=== PATIENT | female | born 1960 | race Two or more races ===

== ENCOUNTER 2019-09-26 05:08 | Day surgery (SDC) | payer OTHER ==
[2019-09-26] VITALS (13 sets, daily range): BP systolic 141–166; BP diastolic 68–88
[~2019-09-26] VITALS: Ht 154.9 cm; Wt 100.2 kg
[2019-09-26] MEDS ORDERED: PRILOSEC OTC20 MG ORAL (05:50)
[2019-09-26] MEDS ORDERED: ASPIRIN81 MG ORAL (05:50)
[2019-09-26] MEDS ORDERED: BENAZEPRIL-HCT1 EACH ORAL (05:50)
[2019-09-26] MEDS ORDERED: PROAIR HFA8.5 GM INH (05:50)
[2019-09-26] MEDS ORDERED: celeBREX 200mg Cap **SURGERY PATIENTS ONLY ORAL ONE (06:00)
[2019-09-26] MEDS ORDERED: oxyCONTIN 20mg tab ORAL ONE (06:00)
[2019-09-26] MEDS ORDERED: ceFAZolin 1gm IVPB IVPB ONE ×2 (06:00)
[2019-09-26] MEDS ORDERED: Ketorolac 30mg Inj ONE (07:01)
[2019-09-26] MEDS ORDERED: Kenalog-40 1ml Vial ONE (07:02)
[2019-09-26] MEDS ORDERED: Duramorph PF 5mg/10ml amp ONE (07:02)
[2019-09-26] MEDS ORDERED: Lidocaine 1% 10mg/ml/Epi 0.005mg/ml 30ml vial INJ ONE (07:02)
[2019-09-26] MEDS ORDERED: Bupivacaine 0.25% Inj 30ml INJ ONE (07:02)
--- NOTE | 2019-09-26 07:09 | Pre-Procedure Note/Attestation ---
Pre-Procedure Note/Attestation Complete Prior to Procedure Planned Procedure: left Procedure Narrative: knee arthroscopic acl reconstruction, possible menisectomy Indications for Procedure Pre-Operative Diagnosis: left knee acl tear and meniscus tear Attestation I attest that I discussed the nature of the procedure; its benefits; risks and complications; and alternatives (and the risks and benefits of such alternatives ), prior to the procedure, with the patient (or the patient's legal termite control service representative). I attest that, if there was a reasonable possibility of needing a blood transfusion, the patient (or the patient's legal termite control service representative) was given the [facility] standardized written summary, pursuant to the Jer Mike Blood Safety Act ([place] Health and Safety Code # 1645, as amended). I attest that I re-evaluated the patient just prior to the surgery and that there has been no change in the patient's H&P, except as documented below: Gian Prescott MD Sep 26, 2019 07:09
--- NOTE | 2019-09-26 07:09 | Operative Note - PDOC ---
Operative Note Operative Note Pre-op Diagnosis: left knee acl tear and meniscus tear Procedure: see op report Post-op Diagnosis: same as pre-op plus Operative Findings: consistent w/pre-op dx studies Anesthesia: MAC Specimen: none Complications: none Condition: stable Estimated Blood Loss: none Implant(s) used?: Yes Gian Prescott MD Sep 26, 2019 07:09
[2019-09-26] MEDS ORDERED: NS Irrig 4000ml IRRIG ONE ×6 (07:14→10:23)
[2019-09-26] MEDS ORDERED: HYDROcodone/Acetamin 5/325 tab ORAL PRN ×2 (07:15)
[2019-09-26] MEDS ORDERED: D5 1/2NS 1,000 ML IV SCH ×2 (07:15)
[2019-09-26] MEDS ORDERED: Tylenol #3 tab (300mg/30mg) ORAL PRN ×2 (07:15)
[2019-09-26] MEDS ORDERED: HYDROmorphone 1mg/ml Carpuject SUBQ PRN ×2 (07:15)
[2019-09-26] MEDS ORDERED: Duramorph PF 5mg/10ml amp IT ONE (07:16)
[2019-09-26] MEDS ORDERED: Ropivacaine 5mg/ml Vial 30ml INJ ONE (07:21)
[2019-09-26] MEDS ORDERED: Lidocaine 1% MPF 10mg/ml 5ml ONE (07:21)
[2019-09-26] MEDS ORDERED: Propofol 200mg/20ml IV ONE (07:21)
[2019-09-26] MEDS ORDERED: fentaNYL 100 mcg/2 mL IV ONE (07:31)
[2019-09-26] MEDS ORDERED: Midazolam 2mg/2ml Inj ONE (07:31)
[2019-09-26] MEDS ORDERED: LR 1000ml 1,000 ML IVLG SCH (08:21)
--- NOTE | 2019-09-26 08:21 | Anethesia Preoperative Eval ---
Anesthesia Pre-op PMH/ROS General Date of Evaluation: Sep 26, 2019 Time of Evaluation: 08:16 Anesthesiologist: Iram ASA Score: ASA 3 Mallampati Score Class I : Soft palate, uvula, fauces, pillars visible Class II: Soft palate, uvula, fauces visible Class III: Soft palate, base of uvula visible Class IV: Only hard plate visible Mallampati Classification: Class II Surgeon: Kenyon Diagnosis: L knee pain torn ACL Surgical Procedure: L knee arthroscopy ACL repair Anesthesia History: none Social History: current smoker Family History: no anesthesia problems Allergies: Coded Allergies: No Known Allergies (Unverified , 09/25/19) Medications: see eMAR Patient NPO?: Yes Past Medical History Cardiovascular: Reports: HTN - stable on pills; Denies: CAD, MS, valve dz, arrhythmia, other Pulmonary: Denies: asthma, COPD, LAITH, other Gastrointestinal/Genitourinary: Reports: GERD; Denies: CRI, ESRD, other Neurologic/Psychiatric: Reports: depression/anxiety Endocrine: Denies: DM, hypothyroidism, steroids, other HEENT: Denies: cataract (L), cataract (R), glaucoma, [place] (L), [place] (R), other Hematology/Immune: Denies: anemia, DVT, bleeding disorder, other Musculoskeletal/Integumentary: Reports: OA; Denies: RA, DJD, DDD, edema, other Other: obesity PMH Narrative: As above PSxH Narrative: LINDY, R ankle ORIF Anesthesia Pre-op Phys. Exam Physician Exam Last Vital Signs Date Time Temp Pulse Resp B/P (MAP) Pulse Ox O2 Delivery O2 Flow Rate FiO2 09/26/19 05:43 Room Air 09/26/19 05:41 97.0 98 18 150/76 98 Constitutional: NAD Neurologic: CN 2-12 intact Cardiovascular: RRR, no M/R/G Respiratory: CTA Gastrointestinal: other - obesity Airway Exam Mallampati Score: Class II MO: full Neck: short ROM: limited Teeth: missing Dentures: upper, lower Anesthesia Pre-op A/P Labs see chart Studies Pre-op Studies: EKG - NSR Risk Assessment & Plan Assessment: ASA 3 Plan: GA with LMA, R femoral block for postoperative pain control Status Change Before Surgery: No Pre-Antibiotics Drug: Ancef 2gr. Given Within 1 Hr of Incision: Yes Time Given: 09:10 Danial Walden MD Sep 26, 2019 08:21
[2019-09-26] MEDS ORDERED: Hydromorphone 0.5mg/0.5ml inj IVP PRN (08:30)
[2019-09-26] MEDS ORDERED: Ketorolac 30mg Inj IV PRN (08:30)
[2019-09-26] MEDS ORDERED: DiphenhydrAMINE 50mg/ml Inj IVP PRN (08:30)
[2019-09-26] MEDS ORDERED: Sterile Water Irrig 1000ml IRRIG ONE (09:00)
[2019-09-26] MEDS ORDERED: NS Irrig 1000ml ONE (09:00)
[2019-09-26] MEDS ORDERED: LR 1000ml ONE (09:00)
--- NOTE | 2019-09-26 10:47 | Immediate Post-Op Evaluation ---
Immediate Post-Op Evalulation Immediate Post-Op Evalulation Procedure: R knee artjroscopiuc ACL repair Date of Evaluation: Sep 26, 2019 Time of Evaluation: 10:46 IV Fluids: 800 Blood Products: none Estimated Blood Loss: min Urinary Output: none Blood Pressure Systolic: 142 Blood Pressure Diastolic: 76 Pulse Rate: 74 Respiratory Rate: 20 O2 Sat by Pulse Oximetry: 99 Temperature (Fahrenheit): 97.6 Pain Score (1-10): 2 Nausea: No Vomiting: No Complications none Patient Status: awake, patent, none Hydration Status: adequate Danial Walden MD Sep 26, 2019 10:47
--- NOTE | 2019-09-26 12:00 | NUR ---
Left knee immobilizer in place. Dr. Prescott here to speak with the patient. Good motion and capillary filling to all left toes.
--- NOTE | 2019-09-26 16:57 | 48 Hour Post Anesthesia Eval ---
Post Anesthesia Evaluation Procedure: R knee artjroscopiuc ACL repair Date of Evaluation: Sep 26, 2019 Time of Evaluation: 13:40 Blood Pressure Systolic: 148 0: 72 Pulse Rate: 72 Respiratory Rate: 20 Temperature (Fahrenheit): 97.5 O2 Sat by Pulse Oximetry: 98 Airway: patent Nausea: No Vomiting: No Pain Intensity: 3 Hydration Status: adequate Cardiopulmonary Status: stable Mental Status/LOC: patient returned to baseline Follow-up Care/Observations: n/a Post-Anesthesia Complications: none Follow-up care needed: ready to discharge Danial Walden MD Sep 26, 2019 16:57
--- NOTE | 2019-09-26 21:30 | Operative Note - Dictated ---
DATE OF OPERATION: 09/26/2019 PREOPERATIVE DIAGNOSES: 1. Left knee ACL tear. 2. Left knee meniscal tear. 3. Left knee chondral damage. POSTOPERATIVE DIAGNOSES: 1. Left knee ACL tear. 2. Grade 2 chondral damage medial femoral condyle with intraarticular loose bodies. 3. Posterior horn medial meniscus tear. 4. Hypertrophic synovial tissue medial and lateral patellofemoral compartment. PROCEDURES: 1. Left knee arthroscopic ACL reconstruction, tibialis anterior allograft. 2. Partial medial meniscectomy. 3. Chondroplasty of medial femoral condyle and removal of intraarticular loose body. 4. Synovectomy medial and lateral patellofemoral compartment. 5. Notchplasty. SURGEON: Gian Prescott M.D. ANESTHESIA: Femoral with general. INDICATION FOR PROCEDURE: The patient is a pleasant female who had pretty significant knee injury to her left knee. She had somewhat of fracture dislocation of her left knee and evidence of ACL tear with MCL tear. She has failed conservative treatment, continued to have instability, elected to undergo left knee ACL reconstruction with possible meniscectomy, chondroplasty. Risks, limitations, expectations complication of the procedure were discussed in detail. All questions were addressed. DESCRIPTION OF PROCEDURE: After informed consent was obtained, the patient was brought to the operating room. The patient was placed under femoral adductor general anesthesia. Left leg was prepped and draped in a sterile manner. Time-out was performed. Examination showed positive Shane test, positive reverse pivot shift test. The tibialis anterior allograft was then prepared on the back table. An inferolateral stab incision was then made. Trocar introduced into the patellofemoral compartment. There was no significant patellofemoral chondral damage. There was hypertrophic synovial tissue. There was some intraarticular loose bodies in the medial gutter. Medial working portal was established. Synovectomy of the medial compartment, intercondylar notch, lateral compartment, patellofemoral compartment was completed. Once this was done, the medial compartment was entered. There was a tear in the posterior horn of the medial meniscus, partial meniscectomy the undersurface of the tear was performed. Once the partial meniscectomy was performed, there was some chondral flaps of the medial femoral condyle. Therefore, a gentle chondroplasty of the medial femoral condyle was also completed. At this point, attention turned to the intercondylar notch which showed more than 75% of the ACL insertion was torn off along the medial wall of lateral femoral condyle. At this point, lateral compartment entered, free of any meniscal chondral damage. Camera was then repositioned in the intercondylar notch. The remnants of the ACL was debrided. The notch seem to be somewhat stenotic and therefore notchplasty was performed. At this point, the femoral and tibial tunnels were prepared. The tibialis anterior allograft was then placed into tibial tunnel, intercondylar notch, femoral tunnel and secured with a ToggleLoc relay suture System. The tibial interference screw was then placed. There was no impingement of the graft with range of motion. At this point, the instruments were removed. Portal sites were closed using Monocryl sutures. ESTIMATED BLOOD LOSS: Minimal. COMPLICATIONS: None. SPECIMENS: None. IMPLANTS: 1. The tibialis anterior allograft. 2. Biomet ToggleLoc relay suture system with a 10 x 30 interference screw. Gian Prescott M.D. DR: Allegra JOB#: [id number] CC: FLORENTIN
== END 2019-09-26 12:55 | disposition home or self-care (01) ==
LOC: SUR 05:08
DX: S83.512A Sprain of anterior cruciate ligament of left knee, initial encounter (principal); S83.242A Other tear of medial meniscus, current injury, left knee, initial encounter; M67.262 Synovial hypertrophy, not elsewhere classified, left lower leg; I10 Essential (primary) hypertension; K21.9 Gastro-esophageal reflux disease without esophagitis; X58.XXXA Exposure to other specified factors, initial encounter; Y92.9 Unspecified place or not applicable; E66.9 Obesity, unspecified; Z68.41 Body mass index [BMI] 40.0-44.9, adult
CPT/HCPCS: 29876; 29881; 29888; C1713; J0690; J1170; J1885; J2250; J2704; J2795; J3010; J3490; J7120; 94003; 94150

== ENCOUNTER 2020-09-17 06:58 | Inpatient (IN) | payer OTHER ==
[~2020-09-17] VITALS: Ht 154.9 cm; Wt 99.8 kg
[2020-09-17] VITALS (14 sets, daily range): BP systolic 103–151; BP diastolic 56–86
[~2020-09-17 06:58] MED LIST: ASPIRIN81 MG ORAL; BENAZEPRIL-HCT1 EACH ORAL; GABAPENTIN600 MG ORAL; NORVASC10 MG ORAL; PRILOSEC OTC20 MG ORAL; PROAIR HFA8.5 GM INH; ceFAZolin 1gm IVPB IVPB ONE; celeBREX 200mg Cap **SURGERY PATIENTS ONLY ORAL ONE; oxyCONTIN 20mg tab ORAL ONE
--- NOTE | 2020-09-17 07:54 | Pre-Procedure Note/Attestation ---
Pre-Procedure Note/Attestation Complete Prior to Procedure Planned Procedure: left Procedure Narrative: tka Indications for Procedure Pre-Operative Diagnosis: left knee posttraumactic arthritis Attestation I attest that I discussed the nature of the procedure; its benefits; risks and complications; and alternatives (and the risks and benefits of such alternatives), prior to the procedure, with the patient (or the patient's legal inventory representative). I attest that, if there was a reasonable possibility of needing a blood transfusion, the patient (or the patient's legal inventory representative) was given the [facility] standardized written summary, pursuant to the Jer Mike Blood Safety Act ([place] Health and Safety Code # 1645, as amended). I attest that I re-evaluated the patient just prior to the surgery and that there has been no change in the patient's H&P, except as documented below: Gian Prescott MD Sep 17, 2020 07:54
--- NOTE | 2020-09-17 07:54 | Operative Note - PDOC ---
Operative Note Operative Note Pre-op Diagnosis: left knee posttraumactic arthritis Procedure: see op report Post-op Diagnosis: same as pre-op plus Operative Findings: consistent w/pre-op dx studies Anesthesia: regional Specimen: none Complications: none Condition: stable Estimated Blood Loss: none Implant(s) used?: Yes Gian Prescott MD Sep 17, 2020 07:54
[2020-09-17] MEDS ORDERED: EPINEPHrine 1mg/1ml Amp ONE ×2 (08:09→09:32)
[2020-09-17] MEDS ORDERED: Ketorolac 30mg Inj ONE (08:10)
[2020-09-17] MEDS ORDERED: Duramorph PF 5mg/10ml amp ONE (08:10)
[2020-09-17] MEDS ORDERED: Kenalog-40 1ml Vial ONE (08:10)
[2020-09-17] MEDS ORDERED: NeoSporin Gu Irrig 1ml Amp IRRIG ONE (08:11)
[2020-09-17] MEDS ORDERED: Bupivacaine 0.25% Inj 30ml INJ ONE (08:11)
[2020-09-17] MEDS ORDERED: Bacitracin 50000 Units Vial ONE (08:11)
--- NOTE | 2020-09-17 08:27 | Anethesia Preoperative Eval ---
Anesthesia Pre-op PMH/ROS General Date of Evaluation: Sep 17, 2020 Time of Evaluation: 09:41 Anesthesiologist: Xena ASA Score: ASA 3 Mallampati Score Class I : Soft palate, uvula, fauces, pillars visible Class II: Soft palate, uvula, fauces visible Class III: Soft palate, base of uvula visible Class IV: Only hard plate visible Mallampati Classification: Class II Surgeon: Kenyon Diagnosis: L Knee Pain Surgical Procedure: L Total Knee Arthroplasty Anesthesia History: none Family History: no anesthesia problems Allergies: Coded Allergies: No Known Allergies (Unverified , 09/25/19) Medications: see eMAR Patient NPO?: Yes Past Medical History Cardiovascular: Reports: HTN, CAD Gastrointestinal/Genitourinary: Reports: GERD Neurologic/Psychiatric: Reports: depression/anxiety Other: obesity - Morbid BMI 43 Anesthesia Pre-op Phys. Exam Physician Exam Last Vital Signs Date Time Temp Pulse Resp B/P (MAP) Pulse Ox O2 Delivery O2 Flow Rate FiO2 09/17/20 07:34 Room Air 09/17/20 07:23 97.2 67 20 151/73 (99) 98 Constitutional: NAD Neurologic: CN 2-12 intact Cardiovascular: RRR Respiratory: CTA Gastrointestinal: S/NT/ND Airway Exam Mallampati Score: Class III MO: limited ROM: limited Teeth: missing, intact Anesthesia Pre-op A/P Risk Assessment & Plan Assessment: ASA 3 Plan: GA, Spinal Status Change Before Surgery: No Pre-Antibiotics Dru Grams Ancef IV Given Within 1 Hr of Incision: Yes Time Given: 10:11 Chandu Mccallum MD Sep 17, 2020 08:27
[2020-09-17] MEDS ORDERED: Hydromorphone 0.5mg/0.5ml inj IVP PRN (08:30)
[2020-09-17] MEDS ORDERED: Midazolam 2mg/2ml Inj IVP PRN (08:30)
[2020-09-17] MEDS ORDERED: Atropine Sulfate 0.4mg/ml inj IVP PRN (08:30)
[2020-09-17] MEDS ORDERED: Metoclopramide 10mg/2ml Inj IVP PRN (08:30)
[2020-09-17] MEDS ORDERED: LORazepam Inj 2mg/ml 1ml IV PRN (08:30)
[2020-09-17] MEDS ORDERED: oxyCODONE HCL/Acetaminophen 5/325mg ORAL PRN (08:30)
[2020-09-17] MEDS ORDERED: Ketorolac 30mg Inj IV PRN ×2 (08:30)
[2020-09-17] MEDS ORDERED: HYDROcodone/Acetamin 5/325 tab ORAL PRN (08:30)
[2020-09-17] MEDS ORDERED: fentaNYL 100 mcg/2 mL IV PRN (08:30)
[2020-09-17] MEDS ORDERED: HYDROcodone/Acetamin 7.5/325 tab ORAL PRN (08:30)
[2020-09-17] MEDS ORDERED: Meperidine 25mg/1ml Inj (FOR RIGORS ONLY) IV PRN (08:30)
[2020-09-17] MEDS ORDERED: LR 1000ml 1,000 ML IVLG SCH (08:30)
[2020-09-17] MEDS ORDERED: DiphenhydrAMINE 50mg/ml Inj IVP PRN (08:30)
[2020-09-17] MEDS ORDERED: Labetalol 5mg/ml 20ml vial IV PRN (08:30)
--- NOTE | 2020-09-17 09:25 | Immediate Post-Op Evaluation ---
Immediate Post-Op Evalulation Immediate Post-Op Evalulation Procedure: L Knee Totl Arthroplasty Date of Evaluation: Sep 17, 2020 Time of Evaluation: 12:47 IV Fluids: 900 LR Blood Products: 0 Estimated Blood Loss: 75 Urinary Output: 350 Blood Pressure Systolic: 135 Blood Pressure Diastolic: 86 Pulse Rate: 73 Respiratory Rate: 16 O2 Sat by Pulse Oximetry: 97 Temperature (Fahrenheit): 97.4 Pain Score (1-10): 1 Nausea: No Vomiting: No Complications 0 Patient Status: awake, reacts, patent, none Hydration Status: adequate Dru Grams Ancef IV Given Within 1 Hr of Incision: Yes Time Given: 10:11 Chandu Mccallum MD Sep 17, 2020 09:25
[2020-09-17] MEDS ORDERED: cloNIDine 1000mcg/10ml inj ONE (09:32)
[2020-09-17] MEDS ORDERED: Bupivacaine 0.5% Inj 30 ml vial INJ ONE (09:33)
[2020-09-17] MEDS ORDERED: Lidocaine 1% MPF 10mg/ml 5ml ONE (09:42)
[2020-09-17] MEDS ORDERED: Duramorph PF 5mg/10ml amp EPIDUR ONE (10:30)
[2020-09-17] MEDS ORDERED: Tranexamic Acid 1,000 MG in NS 65 ML IVPB ONE (10:45)
[2020-09-17 13:49] LABS: HEMOGLOBIN 13.4 G/DL (12.0-16.0); MEAN CORPUSCULAR VOLUME 91 FL (80-99); PLATELET COUNT 370 K/UL (150-450); RED BLOOD COUNT 4.72 M/UL (4.20-5.40); RED CELL DISTRIBUTION WIDTH 14.9 % (11.6-14.8); WHITE BLOOD COUNT 8.7 K/UL (4.8-10.8)
--- NOTE | 2020-09-17 14:15 | NUR ---
NURSE NOTES: Pt came up to unit via hospital in stable condition and w/all belongings accounted for. Pt A&Ox4; VSS; on 2L NC; and in no apparent distress. IV site intact/asymptomatic; F/C patent/draining well; and surgical dressing C/D/I. Will contact MD for orders and continue to monitor.
[2020-09-17] MEDS ORDERED: oxyCODONE 5mg IR tab ORAL PRN (16:00)
--- NOTE | 2020-09-17 16:13 | Diagnostic Imaging Report ---
Indication: Knee pain. Postop Technique: Portable frontal lateral views of the left knee Comparison: None Findings: Patient is status post left total knee arthroplasty and patellar resurfacing. Alignment appears anatomic. There is gas within the soft tissues compatible with postoperative acquisition of the radiograph. IMPRESSION: Status post recent left total knee arthroplasty.
[2020-09-17] MEDS: D5 1/2NS w/KCl 20mEq 1,000 ML IV SCH (18:00)
[2020-09-17] MEDS: ceFAZolin 2gm/50ml Premix 50 ML IV SCH (18:01)
--- NOTE | 2020-09-17 18:14 | Operative Note - Dictated ---
DATE OF OPERATION: 09/17/2020 PREOPERATIVE DIAGNOSES: 1. Status post left knee ACL reconstruction. 2. Left knee posttraumatic arthritis. POSTOPERATIVE DIAGNOSES: 1. Status post left knee ACL reconstruction. 2. Left knee posttraumatic arthritis. PROCEDURE: Left total knee arthroplasty complicated secondary to BMI of over 40 as well as previous ACL surgery. SURGEON: Gian Prescott MD INDICATION FOR PROCEDURE: The patient is a pleasant female who has had significant injury to her left knee. She had instability, underwent ACL construction, but still has had pain and discomfort. She had progressive narrowing and osteoarthritis, elected to undergo left total knee arthroplasty. The risks, limitations, expectations, and complication about the procedure were discussed in detail. All questions were addressed. DESCRIPTION OF PROCEDURE: After informed consent was obtained, the patient was brought into operating room. The patient was placed under anesthesia. Left leg was prepped and draped in a sterile manner. Time-out was performed. Anterior skin incision was marked out. Skin was incised. Medial parapatellar arthrotomy was performed. The fat pad was excised to better visualize the knee. Distal femoral cutting guide was then placed. Distal femur was resected. Posterior to anterior sizing guide measured to size 3 that is appropriately externally rotated based on the epicondyle. Anterior and posterior chamfer cuts were then made. Proximal tibia was well visualized. Tibial cutting block was then placed. Proximal tibia was then resected. Once adequate resection was confirmed and good alignment, size 2 tibial base plate with a size 3 femoral component with a 9 mm insert was selected slightly hyperflexed the knee. Therefore, 11 mm was selected. It came onto full extension, had good stability to full extension, 10 degrees of flexion, 90 degrees flexion and mid flexion. Patella tracked well. At this point, attention was turned to proximal tibia was prepared. The interference screw was noted to be intact and not loose. Patella was everted, measured 22 mm. Freehand resection was performed, recalibrated 22 mm. Once this was done, the cement was prepared. Final implants were impacted into place. Arthrotomy was closed with #1 Vicryl suture, 2-0 Vicryl suture, and 3-0 Monocryl sutures. Steri-Strips and a sterile dressing were applied. ESTIMATED BLOOD LOSS: None. COMPLICATIONS: None. SPECIMENS: None. IMPLANTS: Include size 3 femoral component, size 2 tibial base plate, 11 mm tibial insert and a 37 mm patellar component. Gian Prescott M.D. DR: GARY JOB#: [id number] CC: FLORENTIN
--- NOTE | 2020-09-17 19:42 | NUR ---
NURSE HAND-OFF: Important Events on Shift: Pt admitted to unit in afternoon; CPM & IVF started. Patient Status: Stable Diet: Regular Pending Orders: None Pending Results/Labs: None Pending MD notification: None Latest Vital Signs: Temperature 98.3 , Pulse 69 , B/P 117 /72 , Respiratory Rate 20 , O2 SAT 93 , Nasal Cannula, O2 Flow Rate 2.0 . Vital Sign Comment: Stable Latest Espinal Fall Score: 55 Fall Risk: High Risk Safety Measures: Call light Within Reach, Bed Alarm , Side Rails Side Rails x2, Bed position Low and Locked. Fall Precautions: Yellow Socks Report given to MIGUEL Blue.
--- NOTE | 2020-09-17 19:45 | NUR ---
NURSE NOTES: Received report from Mojgan RIVERA. Patient is awake, alert, and oriented x4. On NC 2L, breathing is even and unlabored. Complains of left knee pain 9/10. Will administer scheduled pain meds. IV right AC intact and patent with no bleeding noted. IVF running as ordered. Leigh intact and draining well. CPM machine removed and put rolled towel under left heel. Bed low and locked. Call light within reach.
[2020-09-17] MEDS ORDERED: Albuterol ud Inhalation HHN PRN (20:00)
[2020-09-17] MEDS ORDERED: Albuterol 90mcg Inhaler 8gm INH SCH (20:00)
[2020-09-17] MEDS: oxyCONTIN 20mg tab ORAL SCH (20:32)
[2020-09-17] MEDS: Ketorolac 30mg Inj IV SCH (22:15)
[2020-09-18] VITALS: BP 115/62
[2020-09-18] MEDS: Morphine Sulfate 4mg/ml Inj (IV USE ONLY) IVP PRN ×2 (00:55→17:48)
[2020-09-18] MEDS: ceFAZolin 2gm/50ml Premix 50 ML IV SCH ×3 (01:19→17:47)
[2020-09-18 04:00] VITALS: BP 143/75
[2020-09-18] MEDS: D5 1/2NS w/KCl 20mEq 1,000 ML IV SCH ×2 (05:10→18:40)
[2020-09-18] MEDS: Ketorolac 30mg Inj IV SCH ×3 (05:11→21:33)
[2020-09-18 05:57] LABS: BASOPHILS % (AUTO) 0.5 % (0.0-2.0); EOSINOPHILS % (AUTO) 0.1 % (0.0-3.0); HEMATOCRIT 40.4 % (37.0-47.0); HEMOGLOBIN 12.9 G/DL (12.0-16.0); LYMPHOCYTES % (AUTO) 17.4 % (20.0-45.0); MEAN CORPUSCULAR VOLUME 91 FL (80-99); MONOCYTES % (AUTO) 6.8 % (1.0-10.0); NEUTROPHILS % (AUTO) 75.2 % (45.0-75.0); PLATELET COUNT 328 K/UL (150-450); RED BLOOD COUNT 4.43 M/UL (4.20-5.40); RED CELL DISTRIBUTION WIDTH 15.1 % (11.6-14.8)
--- NOTE | 2020-09-18 07:30 | NUR ---
NURSE NOTES: Received pt from MIGUEL Blue. pt was sleeping comfortably, no acute distress. call light w/in reach.
--- NOTE | 2020-09-18 07:31 | NUR ---
NURSE HAND-OFF: Important Events on Shift: Pain management Patient Status: Stable Diet: Clear liquid Pending Orders: [] Pending Results/Labs:[] Pending MD notification:[] Latest Vital Signs: Temperature 97.6 , Pulse 60 , B/P 143 /75 , Respiratory Rate 16 , O2 SAT 94 , Nasal Cannula, O2 Flow Rate 2.0 . Vital Sign Comment: VS stable Latest Espinal Fall Score: 55 Fall Risk: High Risk Safety Measures: Call light Within Reach, Bed Alarm , Side Rails Side Rails x2, Bed position Low and Locked. Fall Precautions: Patient Fall Education Report given to Eduardo RIVERA.
[2020-09-18 08:00] VITALS: BP 130/61
[2020-09-18] MEDS: hydroCHLOROthiazide 12.5mg TAB ORAL SCH ×2 (09:00→09:37)
[2020-09-18] MEDS: Benazepril 10mg tab ORAL SCH (09:36)
[2020-09-18] MEDS: oxyCONTIN 20mg tab ORAL SCH ×2 (09:37→20:33)
[2020-09-18] MEDS: Aspirin Baby 81mg ORAL SCH (09:37)
--- NOTE | 2020-09-18 10:29 | 48 Hour Post Anesthesia Eval ---
Post Anesthesia Evaluation Procedure: L Knee Totl Arthroplasty Date of Evaluation: Sep 18, 2020 Time of Evaluation: 10:27 Blood Pressure Systolic: 136 0: 72 Pulse Rate: 68 Respiratory Rate: 20 Temperature (Fahrenheit): 97.6 O2 Sat by Pulse Oximetry: 98 Airway: patent Nausea: No Vomiting: No Pain Intensity: 3 Hydration Status: adequate Cardiopulmonary Status: stable, able to walk along the hallway Mental Status/LOC: patient returned to baseline Follow-up Care/Observations: n/a Post-Anesthesia Complications: none Follow-up care needed: N/A Danial Walden MD Sep 18, 2020 10:28
[2020-09-18 12:00] VITALS: BP 158/64
--- NOTE | 2020-09-18 12:04 | NUR ---
P.T Note: P.T evaluation completed and tx initiated S/P (L) TKR. please refer to P.T evaluation for current functional status.
--- NOTE | 2020-09-18 13:00 | NUR ---
NURSE NOTES: D/c F/c and pt urinated without difficulty.
[2020-09-18] MEDS ORDERED: Tubing IV Secondary IV ONE (15:54)
[2020-09-18 16:00] VITALS: BP 139/77
--- NOTE | 2020-09-18 18:17 | NUR ---
CASE MANAGEMENT:REVIEW 60 YR OLD FEMALE HERE FOR ELECTIVE SURGERY SI: LT KNEE POSTTRAUMATIC ARTHRITIS 97.4 60 20 139/77 95% ON 2L/NC IS: TO SURGERY FOR: LT TOTAL KNEE ARTHROPLASTY : TO MED/SURG 3 EAST POST OP
--- NOTE | 2020-09-18 19:10 | NUR ---
NURSE NOTES: received pt and report from MIGUEL Clark. pt alert and oriented x 4 with no acute s/s of distress and no co pain at this time. IV site clean dry and intact and running fluids as ordered. surgical dressing clean dry and intact. plan of care discussed.
--- NOTE | 2020-09-18 19:42 | NUR ---
HAND-OFF: Report given to MIGUEL Zuniga. pt is stable condition.
[2020-09-18 20:00] VITALS: BP 158/72
--- NOTE | 2020-09-18 23:57 | NUR ---
NURSE NOTES: pt sleeping at this time, no acute s/s found, no distress observed, pt is not co pain at this time.
[2020-09-19 00:35] VITALS: BP 160/74
--- NOTE | 2020-09-19 00:36 | NUR ---
NURSE NOTES: pt complaining of pain in the left shoulder from tendonitis, 03/05, aching pain. vital signs taken. heart rate at 50 to 51, asked pt to move herself up in bed, HR jose guadalupe to over 60. other vital signs stable. Morphine not given due to low heart rate, pt agreed. will follow up vital signs on next reading. pt alert and oriented x 4, asymptomatic with regards to low hr, no dizziness.
[2020-09-19] MEDS: ceFAZolin 2gm/50ml Premix 50 ML IV SCH ×2 (01:03→09:51)
[2020-09-19 04:00] VITALS: BP 143/82
--- NOTE | 2020-09-19 04:15 | NUR ---
NURSE NOTES: pt alert and oriented x 4, no acute s/s of distress. vital signs are stable. HR runs low when pt is lying in bed but upon activity or movement hr within normal values. pt able to get up out of bed and use bedside commode with the help of nurse.
[2020-09-19] MEDS: Ketorolac 30mg Inj IV SCH (05:28)
--- NOTE | 2020-09-19 07:23 | NUR ---
NURSE HAND-OFF: Important Events on Shift:pain management Patient Status: stable Diet: regular Pending Orders: NA Pending Results/Labs:NA Pending MD notification:NA Latest Vital Signs: Temperature 98.7 , Pulse 60 , B/P 143 /82 , Respiratory Rate 18 , O2 SAT 96 , Nasal Cannula, O2 Flow Rate 2.0 . Vital Sign Comment: stable through the shift, HR runs low but after movement in bed within normal limits Latest Espinal Fall Score: 45 Fall Risk: High Risk Safety Measures: Call light Within Reach, Bed Alarm , Side Rails Side Rails x2, Bed position Low and Locked. Fall Precautions: Patient Fall Education Report given to MIGUEL Clark.
[2020-09-19 08:00] VITALS: BP 159/71
[2020-09-19] MEDS: D5 1/2NS w/KCl 20mEq 1,000 ML IV SCH (08:00)
--- NOTE | 2020-09-19 08:20 | NUR ---
NURSE NOTES: Received pt from MIGUEL Zuniga. pt was resting comfortably, no acute distress, call light w/in reach, waiting for discharge today.
[2020-09-19 08:34] VITALS: BP 159/74
[2020-09-19] MEDS: Benazepril 10mg tab ORAL SCH (08:34)
[2020-09-19] MEDS: Aspirin Baby 81mg ORAL SCH (08:34)
[2020-09-19] MEDS: oxyCONTIN 20mg tab ORAL SCH (08:35)
[2020-09-19] MEDS: hydroCHLOROthiazide 12.5mg TAB ORAL SCH (09:00)
[2020-09-19 09:03] LABS: BASOPHILS % (AUTO) 1.2 % (0.0-2.0); EOSINOPHILS % (AUTO) 0.2 % (0.0-3.0); HEMATOCRIT 43.2 % (37.0-47.0); HEMOGLOBIN 13.4 G/DL (12.0-16.0); LYMPHOCYTES % (AUTO) 35.8 % (20.0-45.0); MEAN CORPUSCULAR VOLUME 91 FL (80-99); MONOCYTES % (AUTO) 5.3 % (1.0-10.0); NEUTROPHILS % (AUTO) 57.5 % (45.0-75.0); PLATELET COUNT 318 K/UL (150-450); RED BLOOD COUNT 4.74 M/UL (4.20-5.40); RED CELL DISTRIBUTION WIDTH 15.4 % (11.6-14.8); WHITE BLOOD COUNT 8.6 K/UL (4.8-10.8)
[2020-09-19] MEDS ORDERED: Sterile Water Irrig 1000ml IRRIG ONE (10:00)
[2020-09-19] MEDS ORDERED: LR 1000ml ONE (10:00)
[2020-09-19] MEDS ORDERED: Lidocaine 1% MPF 10mg/ml 5ml ONE (10:00)
--- NOTE | 2020-09-19 11:43 | NUR ---
NURSE NOTES: discharge pt with family, v/s stable, discharge instruction was given, pt verbalized understanding
--- NOTE | 2020-09-22 15:36 | Discharge Summary ---
Discharge Summary Discharge Summary _ Date of admission: 09/17/2020 Date of discharge: 09/19/[address] Prescott History of Present Illness and Brief Hospital Course Ms. Clay is a 60-year-old female with a history of significant injury to her left knee who presented to the hospital for a scheduled left knee replacement surgery. She had instability, and underwent ACL construction in the past, but still had pain and discomfort. She had progressive narrowing and osteoarthritis and she elected to undergo left total knee arthroplasty. The risks, limitations, expectations, and complication about the procedure were discussed in detail. Patient received size 3 femoral component, size 2 tibial baseplate, 11 mm tibial insert and a 37 millimeter patellar component by the end of surgery. She underwent left total knee arthroplasty which was complicated secondary to BMI of over 40 as well as previous ACL surgery. However, patient tolerated the procedure well. After a period of observation and pain control, patient was medically stable for discharge. She was discharged home on 09/19/2020 in stable condition. Consultants: None Discharge Condition Stable Discharge Activity Advance as tolerated Final diagnoses Left knee posttraumatic arthritis Status post left knee ACL reconstruction Status post left total knee arthroplasty I have been assigned to dictate discharge summary for this account. I was not involved in the patient's management Pierre Coker Sep 22, 2020 15:36
== END 2020-09-19 11:38 | disposition home or self-care (01) | DRG 470 ==
LOC: SUR 06:58 → EDSTATUS 10:15 → 3E 14:43
PROC: 0SRD0J9 Replacement of Left Knee Joint with Synthetic Substitute, Cemented, Open Approach (ICD-10-PCS; principal; 2020-09-17 10:15)
DX: M17.32 Unilateral post-traumatic osteoarthritis, left knee (principal); Z68.41 Body mass index [BMI] 40.0-44.9, adult; E66.01 Morbid (severe) obesity due to excess calories; I25.10 Atherosclerotic heart disease of native coronary artery without angina pectoris; I10 Essential (primary) hypertension; K21.9 Gastro-esophageal reflux disease without esophagitis
CPT/HCPCS: 36415; 85007; 85025; 86850; 86900; 86901; 94003; 94150; J2405; J7030